=== PATIENT | male | born 1970 | race Caucasian/White ===

== ENCOUNTER 2017-07-11 11:05 | Observation (INO) | payer OTHER ==
[2017-07-11] MEDS ORDERED: ceFAZolin 1,000 MG VIAL IM STA (11:19)
[2017-07-11] MEDS ORDERED: DIPH,PERTUS(ACELL)TETVAC-LF 0.5 ML VIAL IM ONE (11:19)
[2017-07-11] MEDS ORDERED: KETOROLAC 60 MG/2 ML VIAL IM STA (11:19)
--- NOTE | 2017-07-11 11:34 | ED ---
Wound/Laceration HPI - General Chief Complaint: Wound/Laceration Stated Complaint: IHS finger crushed Time Seen by Provider: 07/11/17 11:15 Source: patient, RN notes reviewed Mode of arrival: ambulatory Limitations: no limitations - History of Present Illness Initial Comments: 46-year-old male presents emergency Department with chief complaint of right hand second digit injury. Patient states that he was at work states that a steel beam was been set down on a cement block states he misjudged and panic caught his finger. He states that he is missing the distal tip of his second digit. He is [id number] he is unsure when his last tetanus was. He states there is minimal bleeding. - Related Data Home Medications Medication Instructions Recorded Confirmed Krill Oil 500 mg PO DAILY 07/11/17 07/11/17 Multivitamins, Thera [Multivitamin 1 tab PO DAILY 07/11/17 07/11/17 (formulary)] Allergies Allergy/AdvReac Type Severity Reaction Status Date / Time adhesive AdvReac Rash/Hives Verified 07/11/17 11:28 Review of Systems ROS Statement: Those systems with pertinent positive or pertinent negative responses have been documented in the HPI. ROS Other: All systems not noted in ROS Statement are negative. Past Medical History Past Medical History: No Reported History History of Any Multi-Drug Resistant Organisms: None Reported Past Surgical History: Hernia Repair Past Psychological History: No Psychological Hx Reported Smoking Status: Never smoker Past Alcohol Use History: Daily Past Drug Use History: None Reported General Exam Limitations: no limitations General appearance: alert, in no apparent distress Respiratory exam: Present: normal lung sounds bilaterally. Absent: respiratory distress, wheezes, rales, rhonchi, stridor Cardiovascular Exam: Present: regular rate, normal rhythm, normal heart sounds. Absent: systolic murmur, diastolic murmur, rubs, gallop, clicks Extremities exam: Present: other (Right hand second digit there is a distal tip avulsion involving part of the nail there is minimal bleeding patient has full range of motion.) Skin exam: Present: warm, dry Course Vital Signs 07/11/17 11:08 Temperature 98.2 F Pulse Rate 99 Respiratory 18 Rate Blood Pressure 160/91 O2 Sat by Pulse 97 Oximetry Medical Decision Making - Medical Decision Making 46-year-old male presents for finger injury. Patient has avulsion of the distal tip of his finger. Patient has bone exposed. Patient was given IV antibiotics and tetanus. Patient's case discussed with celestina dawn on-call for orthopedics patient be admitted for surgery later today. Disposition Clinical Impression: Avulsion of finger tip Disposition: ADMITTED IP TO THIS HOSP Condition: Stable Referrals: Hardik Girard MD [Primary Care Provider] - 1-2 days
--- NOTE | 2017-07-11 11:50 | XR ---
EXAMINATION TYPE: XR finger RT DATE OF EXAM: 07/11/2017 CLINICAL HISTORY: pain TECHNIQUE: 3 views of the left second digit are submitted. COMPARISON: None FINDINGS: No displaced fracture is seen with certainty. Joint spaces are well-preserved. Soft tissue injury noted. No radiopaque foreign body identified. IMPRESSION: No acute displaced fracture or dislocation.
[2017-07-11 13:18] VITALS: BMI 22.8
[2017-07-11] MEDS ORDERED: HYDROcodone/APAP 5-325MG 1 EACH TAB PO PRN (13:43)
--- NOTE | 2017-07-11 13:43 | P.CNOR ---
History of Present Illness - [facility] Consult date: 07/11/17 Consult reason: other History of present illness: This is a 46-year-old male who was seen and evaluated to [facility]. He had an injury while at work, he got his right index finger pinched between a steel brooke and a cement block. This resulted in an avulsion injury of the distal tip of the right second digit. He reported to [facility] for evaluation. Imaging test and labs were done. I was contacted by the emergency room staff regarding this case. I reviewed the images with my attending Dr. Burk. Patient was then admitted to Hospital for further treatment and evaluation. Patient was evaluated today at bedside, he is resting comfortably. He notes minimal discomfort involving the right second digit. He denies any previous surgery involving the right upper extremity. He denies any other soft tissue injuries involving the right or left upper extremity. Patient denies any headaches, lightheadedness, chest pain or shortness of breath. Review of Systems Constitutional: Reports as per [facility] Past Medical History Past Medical History: No Reported History History of Any Multi-Drug Resistant Organisms: None Reported Past Surgical History: Hernia Repair Additional Past Surgical History / Comment(s): lypoma removed from left ribs Past Anesthesia/Blood Transfusion Reactions: No Reported Reaction Past Psychological History: No Psychological Hx Reported Smoking Status: Never smoker Past Alcohol Use History: Daily Past Drug Use History: None Reported - Past Family History Father Family Medical History: Cancer Additional Family Medical History / Comment(s): colon cancer Mother Family Medical History: COPD, Myocardial Infarction ([place]) Medications and Allergies Home Medications Medication Instructions Recorded Confirmed Type Krill Oil 500 mg PO DAILY 07/11/17 07/11/17 History Multivitamins, Thera [Multivitamin 1 tab PO DAILY 07/11/17 07/11/17 History (formulary)] Allergies Allergy/AdvReac Type Severity Reaction Status Date / Time adhesive AdvReac Rash/Hives Verified 07/11/17 13:18 Physical Examination Right upper extremity There is a bulky bandage present over the right second digit, is in good condition and position No acute lesions, including open sores or areas of ecchymosis present throughout the rest of the hand. He is able to wiggle all the fingers with no difficulty Flexion and extension at the wrist are intact. Sensation to light touch throughout the extremities intact, his radial pulses 2+ Results - Diagnostic results Wrist/Hand MRI: report reviewed, image reviewed Assessment and Plan Plan: Imaging: Multiple views of the right hand were reviewed including reports. Images demonstrated no acute fractures or dislocations. There is evidence of soft tissue disruption on the dorsal aspect of the distal phalanx of the right second digit. Assessment: 1. Avulsion injury distal phalanx right second digit Plan: I was able to review the images and physical exam findings of my attending Dr. Burk. We would like to proceed with surgical intervention, more specifically revision amputation of the right second digit. Our plan is to proceed with this on 07/12/2017. The procedure itself was discussed with the patient at bedside today, the risk and benefits were discussed this including but not excluding blood loss, neurovascular injury, infection, pain and stiffness, need for subsequent surgery. Patient is in good understanding like to proceed with surgery. Obtaining consent IV antibiotics, cefazolin 2 g every 8 hours Nothing by mouth after midnight Pain control, utilize oral medication as needed Further recommendations after surgery Time with Patient: Less than 30
[2017-07-11] MEDS: traMADol 50 MG TAB PO SCH ×2 (16:06→21:34)
[2017-07-11] MEDS: ceFAZolin IN SWFI 2 GM/20 ML SYRINGE IVP SCH (21:34)
[2017-07-12] MEDS: ceFAZolin IN SWFI 2 GM/20 ML SYRINGE IVP SCH ×2 (05:07→13:24)
[2017-07-12] MEDS: traMADol 50 MG TAB PO SCH ×2 (10:05→17:24)
[2017-07-12] MEDS ORDERED: LACTATED RINGERS 1,000 ML IV ONE (12:30)
[2017-07-12] MEDS ORDERED: ONDANSETRON 4 MG/2 ML VIAL IVP ONE (12:31)
[2017-07-12 12:34] VITALS: RESP 16
[2017-07-12] MEDS ORDERED: PROPOFOL 10 MG/ML 20 ML VIAL IV ONE (13:24)
[2017-07-12] MEDS ORDERED: KETOROLAC 30 MG/ML 1 ML VIAL ONE (13:24)
[2017-07-12] MEDS ORDERED: fentaNYL (PF) 50 MCG/ML 2 ML AMP ONE (13:24)
[2017-07-12] MEDS ORDERED: MIDAZOLAM 2 MG/2 ML VIAL ONE (13:24)
[2017-07-12] MEDS ORDERED: ceFAZolin 1,000 MG in SODIUM CHLORIDE 0.9% 1,000 ML IRRIGATION ONE (13:44)
[2017-07-12] MEDS ORDERED: BUPIVACAINE (PF) 0.25% 30 ML VIAL SQ ONE (14:00)
--- NOTE | 2017-07-12 14:11 | P.OP ---
Date of Procedure: 07/12/17 Preoperative Diagnosis: Partial amputation right index finger Postoperative Diagnosis: Partial amputation right index finger Procedure(s) Performed: Revision amputation right index finger Anesthesia: SAMMIE, local Surgeon: Laith Burk Estimated Blood Loss (ml): 1 Pathology: none sent Condition: stable Disposition: PACU Indications for Procedure: 46-year-old patient was seen with a partial amputation involving the distal aspect of the right index finger. There appeared to be significant soft tissue loss and no coverage over the exposed distal phalanx. I recommended revision of this soft tissue amputation. I reviewed the procedure, risks, complications and recovery. Patient was agreeable and consent was obtained. Operative Findings: see description of procedure Description of Procedure: The patient was taken to the operative suite. The patient underwent a general anesthetic by the department of anesthesia. The right upper extremity was now prepped and draped in the normal sterile fashion. I now placed a quarter-inch [place] drain and use that for a local tourniquet effect the right index finger. We now evaluated the injury. There was exposure of the distal phalanx. There was significant soft tissue loss along the palmaris and ulnar aspects. There was a residual one third remaining the proximal nailbed. I do not have enough soft tissue coverage to preserve the nailbed therefore this was removed/excised without difficulty. I now excised some tissue along the remainder of the soft tissue flaps getting down to healthy looking tissue. I now removed enough bone to allow soft tissue coverage with a bone cutter followed by smoothing the areas out with a rongeur. We now had a smooth surface and had enough soft tissue for coverage. I now irrigated the wound out copiously. We evaluated the wound again noted clean margins. I now repaired the soft tissue utilizing nylon suture. I had good coverage of the distal phalanx with no exposed bone. I now released my [place] drain tourniquet with good capillary refill noted distally. I now performed a digital block utilizing 6 mL quarter percent plain Marcaine. We now applied sterile dressings. The patient was awakened and then transferred to recovery in stable condition having tolerated the procedure well.
[2017-07-12 16:53] VITALS: TEMP 97.3
[2017-07-12 16:55] VITALS: BP 116/73; PULSE 56
== END 2017-07-12 18:42 | disposition home or self-care (01) ==
LOC: EC 11:05 → 3SUR 12:08
PROVIDERS: ADMIT Orthopaedic Surgery; ATTEND Orthopaedic Surgery
DX: S68.120A Partial traumatic metacarpophalangeal amputation of right index finger, initial encounter (principal); W23.0XXA Caught, crushed, jammed, or pinched between moving objects, initial encounter; Y92.9 Unspecified place or not applicable; Y99.0 Civilian activity done for income or pay; Z91.048 Other nonmedicinal substance allergy status; Z80.0 Family history of malignant neoplasm of digestive organs; Z82.5 Family history of asthma and other chronic lower respiratory diseases; Z82.49 Family history of ischemic heart disease and other diseases of the circulatory system
CPT/HCPCS: 26236; 99284 ×2; 90471 ×2; 96372 ×3; 96376; 96374; 73140; 90715; G0378 ×2; J2250; J2405; J0690 ×4; J3010; J1885 ×2; J2704

== ENCOUNTER 2017-10-10 11:18 | Day surgery (SDC) | payer OTHER ==
[2017-10-07 16:51] VITALS: BMI 22.8
--- NOTE | 2017-10-09 16:18 | HP ---
HISTORY AND PHYSICAL REASON FOR ADMISSION: Surgery 10/10/2017 Emeka Valle is a 46-year-old patient who had undergone previous revision amputation of his right index finger. He was noted to have residual remnant nail which was causing persistent symptoms for him. I discussed revision of this amputation. We reviewed the procedure, risks, complications, benefits, recovery. He was agreeable. Consent was obtained. PAST MEDICAL HISTORY: Noncontributory. PAST SURGICAL HISTORY: Herniorrhaphy, right index finger surgery. DAILY MEDICATIONS: None. ALLERGIES: None reported. SOCIAL HISTORY: Patient denies tobacco use. PHYSICAL EXAMINATION: Physical evaluation of the right hand, there is evidence of residual nail growing at the tip of the amputation site right index finger. This is somewhat tender to palpation. There is no evidence for any infective process. He has limited range of motion, but with no pain. He has good perfusion distally. There is a good radial pulse present. Radiographs of his right hand previously revealed a stable amputation site involving the proximal aspect of the distal phalanx. IMPRESSION: Painful right index finger amputation site. PLAN: Revision amputation right index finger. Surgery scheduled for 10/10/2017. MMODL / IJN: [id number] /
[~2017-10-10 11:18] MED LIST: DEXAMETHASONE SOD PHOSPHATE 10 MG/ML 1 ML VIAL IV ONE; HYDROmorphone 0.5 MG/0.5 ML SYRINGE IVP PRN; LACTATED RINGERS 1,000 ML IV SCH; ONDANSETRON 4 MG/2 ML VIAL IVP ONE; ceFAZolin IN SWFI 2 GM/20 ML SYRINGE IVP ONE
[2017-10-10 11:28] VITALS: RESP 16; TEMP 97.6
[2017-10-10] MEDS ORDERED: ROPIVACAINE 5 MG/ML 30 ML VIAL MISCELLANE ONE (12:28)
[2017-10-10] MEDS ORDERED: MIDAZOLAM 2 MG/2 ML VIAL ONE (12:28)
[2017-10-10] MEDS ORDERED: fentaNYL (PF) 50 MCG/ML 2 ML AMP ONE (12:28)
[2017-10-10] MEDS ORDERED: PROPOFOL 10 MG/ML 20 ML VIAL IV ONE (12:28)
[2017-10-10] MEDS ORDERED: LIDOCAINE 1% INJ 10MG/ML (20 ML MDV) ONE (12:28)
[2017-10-10] MEDS ORDERED: SODIUM CHLORIDE 0.9% 50 ML with ceFAZolin 2,000 MG IV ONE ×2 (12:33)
--- NOTE | 2017-10-10 12:57 | P.OP ---
Date of Procedure: 10/10/17 Preoperative Diagnosis: Painful distal amputation site right index finger Postoperative Diagnosis: Same Procedure(s) Performed: Revision amputation right index finger Anesthesia: MAC, local Surgeon: Laith Burk Estimated Blood Loss (ml): 1 Pathology: none sent Condition: stable Disposition: PACU Indications for Procedure: 46-year-old patient seen with a painful amputation site distal tip right index finger. We discussed treatment options. He elected to proceed with revision. Consent was obtained. Description of Procedure: The patient was taken to the operative suite. The patient received preoperative IV antibiotics. The patient went IV sedation/anesthesia by the primary a seizure. The right hand/upper extremity was prepped and draped in the normal orthopedic fashion. I performed a digital block to the right index finger utilizing a total of 5 mL half percent plain ropivacaine. When a good digital block was achieved I used a [place] drain for tourniquet. I now evaluated the distal and limitation site. There did appear to be residual nail growing out of the tip. With a 15 blade this was sharply excised. I now utilized to arise sure to make sure all germinal matrix nail bed was completely removed. I now freed up some tissue to afford coverage along the distal tip. I now irrigated the wound. I now repaired the amputation site with nylon suture. There was good approximation. There was complete closure. I released the [place] drain with immediate capillary refill the digit noted. I applied sterile dressings. The patient was awakened and transferred to recovery in stable condition having entire the procedure well.
[2017-10-10] MEDS ORDERED: LACTATED RINGERS 1,000 ML IV ONE (14:35)
[2017-10-10 14:40] VITALS: BP 110/60; PULSE 62
== END 2017-10-10 14:42 | disposition home or self-care (01) ==
LOC: OR 11:18
PROVIDERS: ATTEND Orthopaedic Surgery
DX: T87.89 Other complications of amputation stump (principal)
CPT/HCPCS: 26951; J2250; J1100; J2405; J2001; J3010; J0690; J2795; J2704